=== PATIENT | male | born 1955 | race Caucasian/White ===

== ENCOUNTER 2022-03-16 19:26 | Observation (INO) ==
[2022-03-16] MEDS ORDERED: Lactated Ringers 1000 ml BAG 1,000 ML IV ONE ×2 (19:29→21:41)
[2022-03-16] MEDS ORDERED: Ondansetron 4 mg VIAL 2 MG/ML 2 ml VIAL IV ONE ×2 (19:29→22:25)
[2022-03-16] MEDS ORDERED: Pantoprazole VIAL 40 MG VIAL IV ONE (19:53)
[2022-03-16 20:03] LABS: ABS Lymphocytes 0.9 10^3/ul (1.0-4.8); ABS Neutrophils 12.8 10^3/ul (1.5-7.7); Hematocrit 54 % (42-52); Hemoglobin 17.3 g/dL (14.0-18.0); Lymphocyte % 6.4 %; Mean Corpuscular HGB Conc 32 g/dL (31-36); Mean Corpuscular Hemoglobin 29 pg (27-31); Mean Corpuscular Volume 90 fL (80-94); Mean Platelet Volume 8.5 fL (7.4-10.4); Platelet Count 356 10^3/uL (150-450); Red Blood Count 5.92 10^6 /uL (4.18-5.48); Red Cell Distribution Width 14 % (10-15); White Blood Count 14.8 10^3/uL (3.5-10.8)
[2022-03-16 20:41] LABS: ALT 14 U/L (7-52); AST 14 U/L (13-39); Albumin 5.1 g/dL (3.2-5.2); Albumin/Globulin Ratio 1.4 (1-3); Alkaline Phosphatase 70 U/L (35-149); Anion Gap 26 mmol/L (2-11); Blood Urea Nitrogen 32 mg/dL (6-24); C Reactive Protein 7.03 mg/L (<8.01); CO2 Carbon Dioxide 35 mmol/L (22-32); Calcium 10.5 mg/dL (8.6-10.3); Chloride 78 mmol/L (101-111); Globulin 3.6 g/dL (2-4); Glucose 164 mg/dL (70-100); Lipase 15 U/L (11.0-82.0); Magnesium 1.7 mg/dL (1.9-2.7); Potassium 3.7 mmol/L (3.5-5.0); Sodium 139 mmol/L (135-145); Total Protein 8.7 g/dL (6.4-8.9); eGFR CKD-EPI 23.2 (>60)
[2022-03-16 20:51] LABS: Alcohol, S < 13 mg/dL (<13)
[2022-03-16] MEDS ORDERED: Magnesium Sulfate 2 gm BAG 2 GM/50 ML BAG IVPB ONE (20:56)
[2022-03-16 21:22] LABS: Venous Bicarbonate HCO3 44.3 mmol/L (24-28)
[2022-03-16 21:56] LABS: High Sensitivity Troponin 1 Hr 71 pg/mL (<20)
[2022-03-17 00:03] LABS: Calcium 8.7 mg/dL (8.6-10.3); Magnesium 2.4 mg/dL (1.9-2.7)
[2022-03-17 00:09] LABS: eGFR CKD-EPI 31.5 (>60)
[2022-03-17] MEDS ORDERED: Potassium Chlor 20 meq TAB.ER PO ONE (00:10)
[2022-03-17] MEDS ORDERED: Potassium Chloride LIQUID 20 MEQ/15 ML LIQUID PO ONE (01:11)
[2022-03-17] MEDS: Ondansetron 4 mg VIAL 2 MG/ML 2 ml VIAL IV PRN ×2 (03:50→11:31)
[2022-03-17] MEDS: Pantoprazole VIAL 40 MG VIAL IV SCH ×3 (03:50→20:25)
[2022-03-17 06:26] LABS: ABS Eosinophils 0.1 10^3/ul (0-0.6); ABS Lymphocytes 1.1 10^3/ul (1.0-4.8); ABS Neutrophils 8.9 10^3/ul (1.5-7.7); Eosinophil % 0.8 %; Hematocrit 47 % (42-52); Hemoglobin 15.5 g/dL (14.0-18.0); Lymphocyte % 10.1 %; Mean Corpuscular HGB Conc 33 g/dL (31-36); Mean Corpuscular Hemoglobin 30 pg (27-31); Mean Corpuscular Volume 91 fL (80-94); Mean Platelet Volume 9.1 fL (7.4-10.4); Nucleated Red Blood Cells % 0.1; Platelet Count 267 10^3/uL (150-450); Red Blood Count 5.22 10^6 /uL (4.18-5.48); Red Cell Distribution Width 14 % (10-15); White Blood Count 11.2 10^3/uL (3.5-10.8)
[2022-03-17 07:23] LABS: Calcium 9.7 mg/dL (8.6-10.3); Potassium 3.9 mmol/L (3.5-5.0); eGFR CKD-EPI 31.5 (>60)
[2022-03-17] MEDS ORDERED: Pantoprazole VIAL 40 MG VIAL IV SCH (09:00)
[2022-03-17] MEDS ORDERED: Midazolam 2 mg/2 ml VIAL 1 mg/ml 2 ml VIAL (2 mg) ONE (14:18)
[2022-03-17] MEDS ORDERED: Rocuronium 50 mg VIAL 10 mg/ml 5 ml VIAL (50 mg) ONE (14:18)
[2022-03-17] MEDS ORDERED: fentaNYL 100 mcg/2 ml 50 MCG/ML VIAL ONE (14:18)
[2022-03-17] MEDS ORDERED: Propofol 10 MG/ML 20 ML BTL ONE (14:18)
[2022-03-17] MEDS ORDERED: Lidocaine 2% PF 5 ML VIAL ONE (14:19)
[2022-03-17] MEDS: Heparin 5000 UNITS/ML 1 mL VIAL SUBCUT SCH ×2 (16:32→20:24)
[2022-03-17] MEDS: Lactated Ringers 1000 ml BAG 1,000 ML IV SCH (22:39)
[2022-03-17 23:38] LABS: Calcium 9.1 mg/dL (8.6-10.3); Potassium 3.1 mmol/L (3.5-5.0); eGFR CKD-EPI 41.6 (>60)
[2022-03-18] MEDS: Heparin 5000 UNITS/ML 1 mL VIAL SUBCUT SCH ×3 (05:11→21:23)
[2022-03-18 05:25] LABS: ABS Basophils 0.1 10^3/ul (0-0.2); ABS Eosinophils 0.3 10^3/ul (0-0.6); ABS Lymphocytes 1.6 10^3/ul (1.0-4.8); ABS Monocytes 0.8 10^3/ul (0-0.8); ABS Neutrophils 5.5 10^3/ul (1.5-7.7); Eosinophil % 3.9 %; Hematocrit 42 % (42-52); Lymphocyte % 19.7 %; Mean Corpuscular HGB Conc 33 g/dL (31-36); Mean Corpuscular Hemoglobin 30 pg (27-31); Mean Corpuscular Volume 91 fL (80-94); Mean Platelet Volume 9.1 fL (7.4-10.4); Platelet Count 203 10^3/uL (150-450); Red Blood Count 4.63 10^6 /uL (4.18-5.48); Red Cell Distribution Width 14 % (10-15); White Blood Count 8.4 10^3/uL (3.5-10.8)
[2022-03-18 05:29] LABS: Urine Appearance Clear; Urine Bilirubin Negative (Negative); Urine Blood Negative (Negative); Urine Color Yellow; Urine Glucose Negative (Negative); Urine Ketones 1+ (Negative); Urine Nitrite Negative (Negative); Urine Protein Negative (Negative); Urine Urobilinogen Positive (Negative)
[2022-03-18 05:42] LABS: Potassium 3.7 mmol/L (3.5-5.0); eGFR CKD-EPI 46.9 (>60)
[2022-03-18] MEDS: Lactated Ringers 1000 ml BAG 1,000 ML IV SCH (06:41)
[2022-03-19] MEDS: Ondansetron 4 mg VIAL 2 MG/ML 2 ml VIAL IV PRN (02:40)
[2022-03-19] MEDS ORDERED: Calcium Carb (TUMS) 500 mg CHEW TAB PO ONE (02:43)
[2022-03-19] MEDS: Heparin 5000 UNITS/ML 1 mL VIAL SUBCUT SCH ×2 (05:13→13:52)
[2022-03-19 06:05] LABS: ABS Eosinophils 0.5 10^3/ul (0-0.6); ABS Lymphocytes 1.3 10^3/ul (1.0-4.8); ABS Monocytes 0.6 10^3/ul (0-0.8); ABS Neutrophils 3.9 10^3/ul (1.5-7.7); Eosinophil % 7.8 %; Hematocrit 39 % (42-52); Hemoglobin 13.1 g/dL (14.0-18.0); Lymphocyte % 20.9 %; Mean Corpuscular HGB Conc 33 g/dL (31-36); Mean Corpuscular Hemoglobin 30 pg (27-31); Mean Corpuscular Volume 91 fL (80-94); Mean Platelet Volume 8.8 fL (7.4-10.4); Platelet Count 193 10^3/uL (150-450); Red Blood Count 4.29 10^6 /uL (4.18-5.48); Red Cell Distribution Width 13 % (10-15); White Blood Count 6.4 10^3/uL (3.5-10.8)
[2022-03-19 06:33] LABS: Calcium 9.2 mg/dL (8.6-10.3); Potassium 3.3 mmol/L (3.5-5.0); eGFR CKD-EPI 65.4 (>60)
[2022-03-19] MEDS ORDERED: Potassium Chlor 20 meq TAB.ER PO ONE (09:26)
[2022-03-19] MEDS ORDERED: Calcium Carb (TUMS) 500 mg CHEW TAB PO PRN (09:32)
[2022-03-19 10:48] VITALS: BP 136/63
== END 2022-03-19 15:00 | disposition home or self-care (01) ==
LOC: ED 19:26 → MED 19:26
PROVIDERS: ADMIT Internal Medicine; ATTEND Internal Medicine
PROC: O.GIEGD (2022-03-17 15:25)

== ENCOUNTER 2022-03-21 04:06 | Inpatient (IN) ==
[2022-03-21] MEDS ORDERED: Droperidol 5 MG/2 ML 2 ML VIAL IV ONE (05:02)
[2022-03-21] MEDS ORDERED: NS 0.9% 1000 ml BAG 2,000 ML IV ONE (05:02)
[2022-03-21 05:33] LABS: ABS Eosinophils 0.5 10^3/ul (0-0.6); ABS Lymphocytes 0.9 10^3/ul (1.0-4.8); ABS Monocytes 0.7 10^3/ul (0-0.8); ABS Neutrophils 9.3 10^3/ul (1.5-7.7); Eosinophil % 4.1 %; Hematocrit 42 % (42-52); Hemoglobin 13.3 g/dL (14.0-18.0); Lymphocyte % 8.2 %; Mean Corpuscular HGB Conc 32 g/dL (31-36); Mean Corpuscular Hemoglobin 29 pg (27-31); Mean Corpuscular Volume 91 fL (80-94); Mean Platelet Volume 8.9 fL (7.4-10.4); Platelet Count 203 10^3/uL (150-450); Red Blood Count 4.57 10^6 /uL (4.18-5.48); Red Cell Distribution Width 14 % (10-15); White Blood Count 11.5 10^3/uL (3.5-10.8)
[2022-03-21 06:32] LABS: Albumin 3.9 g/dL (3.2-5.2); Albumin/Globulin Ratio 1.6 (1-3); Calcium 9.7 mg/dL (8.6-10.3); Globulin 2.5 g/dL (2-4); Potassium 3.5 mmol/L (3.5-5.0); Total Bilirubin 0.6 mg/dL (0.2-1.0); Total Protein 6.4 g/dL (6.4-8.9); eGFR CKD-EPI 73.2 (>60)
[2022-03-21 07:28] LABS: Urine Appearance Clear; Urine Bilirubin Negative (Negative); Urine Blood Negative (Negative); Urine Color Yellow; Urine Glucose Negative (Negative); Urine Ketones Negative (Negative); Urine Nitrite Negative (Negative); Urine Protein Negative (Negative); Urine Specific Gravity 1.009 (1.002-1.030); Urine Urobilinogen Negative (Negative)
[2022-03-21] MEDS ORDERED: Lidocaine 2% JELLY 6 ML Topical TOPICAL ONE ×2 (08:21→09:09)
[2022-03-21] MEDS: Ondansetron 4 mg VIAL 2 MG/ML 2 ml VIAL IV PRN ×2 (09:48→22:08)
[2022-03-21] MEDS: Lactated Ringers 1000 ml BAG 1,000 ML IV SCH ×2 (13:21→21:52)
[2022-03-21] MEDS: Pantoprazole VIAL 40 MG VIAL IV SCH ×2 (13:21→21:23)
[2022-03-21] MEDS: Heparin 5000 UNITS/ML 1 mL VIAL SUBCUT SCH ×2 (13:21→21:24)
[2022-03-22 04:51] LABS: ABS Eosinophils 0.5 10^3/ul (0-0.6); ABS Lymphocytes 1.2 10^3/ul (1.0-4.8); ABS Monocytes 0.7 10^3/ul (0-0.8); Hematocrit 35 % (42-52); Hemoglobin 11.3 g/dL (14.0-18.0); Lymphocyte % 12.7 %; Mean Corpuscular HGB Conc 32 g/dL (31-36); Mean Corpuscular Hemoglobin 29 pg (27-31); Mean Corpuscular Volume 91 fL (80-94); Mean Platelet Volume 9.3 fL (7.4-10.4); Nucleated Red Blood Cells % 0.1; Platelet Count 180 10^3/uL (150-450); Red Blood Count 3.86 10^6 /uL (4.18-5.48); Red Cell Distribution Width 14 % (10-15); White Blood Count 9.4 10^3/uL (3.5-10.8)
[2022-03-22 05:10] LABS: Potassium 3.6 mmol/L (3.5-5.0); eGFR CKD-EPI 96.5 (>60)
[2022-03-22 05:26] LABS: Calcium 8.9 mg/dL (8.6-10.3)
[2022-03-22] MEDS: Lactated Ringers 1000 ml BAG 1,000 ML IV SCH ×2 (05:36→15:36)
[2022-03-22] MEDS: Heparin 5000 UNITS/ML 1 mL VIAL SUBCUT SCH ×3 (05:37→21:41)
[2022-03-22] MEDS: Ondansetron 4 mg VIAL 2 MG/ML 2 ml VIAL IV PRN ×2 (06:36→21:52)
[2022-03-22] MEDS: Pantoprazole VIAL 40 MG VIAL IV SCH ×2 (08:33→21:38)
[2022-03-22] MEDS ORDERED: Calcium Carb (TUMS) 500 mg CHEW TAB PO PRN (15:50)
[2022-03-23] MEDS: Heparin 5000 UNITS/ML 1 mL VIAL SUBCUT SCH ×3 (05:27→22:10)
[2022-03-23 05:34] LABS: ABS Eosinophils 0.4 10^3/ul (0-0.6); ABS Lymphocytes 1.2 10^3/ul (1.0-4.8); ABS Monocytes 0.7 10^3/ul (0-0.8); ABS Neutrophils 6.5 10^3/ul (1.5-7.7); Hematocrit 33 % (42-52); Hemoglobin 10.9 g/dL (14.0-18.0); Lymphocyte % 13.7 %; Mean Corpuscular HGB Conc 33 g/dL (31-36); Mean Corpuscular Hemoglobin 30 pg (27-31); Mean Corpuscular Volume 92 fL (80-94); Mean Platelet Volume 8.9 fL (7.4-10.4); Platelet Count 185 10^3/uL (150-450); Red Blood Count 3.58 10^6 /uL (4.18-5.48); Red Cell Distribution Width 14 % (10-15); White Blood Count 8.9 10^3/uL (3.5-10.8)
[2022-03-23 05:59] LABS: Calcium 8.8 mg/dL (8.6-10.3); Potassium 3.7 mmol/L (3.5-5.0); eGFR CKD-EPI 95.2 (>60)
[2022-03-23] MEDS: Lactated Ringers 1000 ml BAG 1,000 ML IV SCH ×2 (06:07→21:01)
[2022-03-23] MEDS: Pantoprazole VIAL 40 MG VIAL IV SCH ×2 (08:30→21:04)
[2022-03-23] MEDS: Sucralfate 1 gm SUSP 1 GM/10 ML UDC PO SCH ×3 (13:00→21:04)
[2022-03-23] MEDS ORDERED: Al Hydrox/Mg Hydrox/Simet LIQ 30 ML UDC PO PRN (20:28)
[2022-03-24] MEDS: Ondansetron 4 mg VIAL 2 MG/ML 2 ml VIAL IV PRN (00:59)
[2022-03-24] MEDS: Heparin 5000 UNITS/ML 1 mL VIAL SUBCUT SCH ×3 (05:24→21:17)
[2022-03-24 06:43] LABS: Calcium 8.6 mg/dL (8.6-10.3); Magnesium 1.2 mg/dL (1.9-2.7); Potassium 3.7 mmol/L (3.5-5.0); eGFR CKD-EPI 100.3 (>60)
[2022-03-24] MEDS ORDERED: Magnesium Sulf 4 GM/100 ML IV 4,000 MG/100 ML BAG IVPB ONE (07:00)
[2022-03-24] MEDS: Sucralfate 1 gm SUSP 1 GM/10 ML UDC PO SCH ×4 (07:48→21:16)
[2022-03-24] MEDS: Pantoprazole VIAL 40 MG VIAL IV SCH ×2 (09:08→21:17)
[2022-03-24] MEDS ORDERED: Cyanocobalamin INJ 1,000 MCG/ML VIAL 1 ML VIAL IM ONE (11:07)
[2022-03-24] MEDS: Lactated Ringers 1000 ml BAG 1,000 ML IV SCH (13:21)
[2022-03-24] MEDS ORDERED: Midazolam 5 mg/5 ml VIAL 1 mg/ml 5 ml VIAL (5 mg) ONE (15:24)
[2022-03-24] MEDS ORDERED: fentaNYL 100 mcg/2 ml 50 MCG/ML VIAL ONE (15:24)
[2022-03-25] MEDS: Lactated Ringers 1000 ml BAG 1,000 ML IV SCH (04:42)
[2022-03-25] MEDS: Heparin 5000 UNITS/ML 1 mL VIAL SUBCUT SCH ×3 (05:36→21:59)
[2022-03-25] MEDS: Sucralfate 1 gm SUSP 1 GM/10 ML UDC PO SCH ×4 (07:10→23:42)
[2022-03-25] MEDS: Pantoprazole VIAL 40 MG VIAL IV SCH ×2 (08:39→22:03)
[2022-03-25] MEDS ORDERED: Metoclopramide 5 MG/ML VIAL (10 mg) IV SLOW PU ONE ×2 (13:09→16:30)
[2022-03-26 06:06] LABS: ABS Basophils 0.1 10^3/ul (0-0.2); ABS Eosinophils 0.3 10^3/ul (0-0.6); ABS Monocytes 0.9 10^3/ul (0-0.8); ABS Neutrophils 4.2 10^3/ul (1.5-7.7); Eosinophil % 4.1 %; Hematocrit 32 % (42-52); Hemoglobin 10.4 g/dL (14.0-18.0); Lymphocyte % 15.9 %; Mean Corpuscular HGB Conc 33 g/dL (31-36); Mean Corpuscular Hemoglobin 30 pg (27-31); Mean Corpuscular Volume 91 fL (80-94); Mean Platelet Volume 9.1 fL (7.4-10.4); Platelet Count 262 10^3/uL (150-450); Red Cell Distribution Width 14 % (10-15); White Blood Count 6.4 10^3/uL (3.5-10.8)
[2022-03-26] MEDS: Heparin 5000 UNITS/ML 1 mL VIAL SUBCUT SCH ×3 (06:22→21:59)
[2022-03-26] MEDS: Ondansetron 4 mg VIAL 2 MG/ML 2 ml VIAL IV PRN ×3 (06:29→22:01)
[2022-03-26 06:35] LABS: Magnesium 1.5 mg/dL (1.9-2.7); Potassium 3.6 mmol/L (3.5-5.0)
[2022-03-26 06:41] LABS: eGFR CKD-EPI 103.4 (>60)
[2022-03-26] MEDS ORDERED: Magnesium Sulfate 2 gm BAG 2 GM/50 ML BAG IVPB ONE (06:59)
[2022-03-26] MEDS: Sucralfate 1 gm SUSP 1 GM/10 ML UDC PO SCH ×3 (08:50→17:28)
[2022-03-26] MEDS: Pantoprazole VIAL 40 MG VIAL IV SCH ×2 (10:02→20:54)
[2022-03-26] MEDS ORDERED: Magnesium Sulfate IV 3 GM in NS 0.9% 100 ml BAG 100 ML IVPB ONE (10:28)
[2022-03-26] MEDS ORDERED: Magnesium Hydroxide LIQ 30 ML UDC PO PRN (10:29)
[2022-03-26] MEDS ORDERED: Polyethylene Glycol 3350 17 GM PACKET PO PRN (10:29)
[2022-03-26] MEDS ORDERED: Senna TAB 8.6 mg TAB PO PRN (10:29)
[2022-03-27] MEDS: Sucralfate 1 gm SUSP 1 GM/10 ML UDC PO SCH ×4 (01:08→17:00)
[2022-03-27] MEDS ORDERED: Metoclopramide 5 MG/ML VIAL (10 mg) IV PRN (01:26)
[2022-03-27] MEDS: Heparin 5000 UNITS/ML 1 mL VIAL SUBCUT SCH ×3 (05:56→22:14)
[2022-03-27 06:19] LABS: ABS Eosinophils 0.2 10^3/ul (0-0.6); ABS Lymphocytes 0.9 10^3/ul (1.0-4.8); ABS Monocytes 0.8 10^3/ul (0-0.8); ABS Neutrophils 8.3 10^3/ul (1.5-7.7); Hematocrit 34 % (42-52); Hemoglobin 11.2 g/dL (14.0-18.0); Lymphocyte % 8.9 %; Mean Corpuscular HGB Conc 33 g/dL (31-36); Mean Corpuscular Hemoglobin 30 pg (27-31); Mean Corpuscular Volume 91 fL (80-94); Platelet Count 308 10^3/uL (150-450); Red Blood Count 3.73 10^6 /uL (4.18-5.48); Red Cell Distribution Width 14 % (10-15); White Blood Count 10.2 10^3/uL (3.5-10.8)
[2022-03-27 06:33] LABS: Magnesium 1.8 mg/dL (1.9-2.7); Potassium 3.5 mmol/L (3.5-5.0); eGFR CKD-EPI 96.9 (>60)
[2022-03-27] MEDS: Ondansetron 4 mg VIAL 2 MG/ML 2 ml VIAL IV PRN (06:41)
[2022-03-27 07:08] LABS: Hematocrit 35 % (42-52); Hemoglobin 11.5 g/dL (14.0-18.0)
[2022-03-27] MEDS ORDERED: Magnesium Sulfate 2 gm BAG 2 GM/50 ML BAG IVPB ONE (08:19)
[2022-03-27] MEDS: Pantoprazole VIAL 40 MG VIAL IV SCH ×2 (08:31→20:49)
[2022-03-27 19:58] LABS: Helicobacter pylori Result Not Detected; Specimen Source STOOL
[2022-03-28] MEDS: Sucralfate 1 gm SUSP 1 GM/10 ML UDC PO SCH ×5 (00:41→23:31)
[2022-03-28] MEDS: Heparin 5000 UNITS/ML 1 mL VIAL SUBCUT SCH ×3 (05:50→21:25)
[2022-03-28 07:03] LABS: ABS Eosinophils 0.3 10^3/ul (0-0.6); ABS Lymphocytes 1.2 10^3/ul (1.0-4.8); ABS Monocytes 0.9 10^3/ul (0-0.8); ABS Neutrophils 4.9 10^3/ul (1.5-7.7); Eosinophil % 4.3 %; Hematocrit 29 % (42-52); Hemoglobin 9.7 g/dL (14.0-18.0); Lymphocyte % 16.9 %; Mean Corpuscular HGB Conc 33 g/dL (31-36); Mean Corpuscular Hemoglobin 30 pg (27-31); Mean Corpuscular Volume 90 fL (80-94); Mean Platelet Volume 8.3 fL (7.4-10.4); Platelet Count 306 10^3/uL (150-450); Red Blood Count 3.23 10^6 /uL (4.18-5.48); Red Cell Distribution Width 14 % (10-15); White Blood Count 7.3 10^3/uL (3.5-10.8)
[2022-03-28 07:22] LABS: Anion Gap 9 mmol/L (2-11); Blood Urea Nitrogen 8 mg/dL (6-24); CO2 Carbon Dioxide 27 mmol/L (22-32); Calcium 8.1 mg/dL (8.6-10.3); Chloride 103 mmol/L (101-111); Glucose 116 mg/dL (70-100); Magnesium 1.7 mg/dL (1.9-2.7); Potassium 3.8 mmol/L (3.5-5.0); Sodium 139 mmol/L (135-145); eGFR CKD-EPI 99.9 (>60)
[2022-03-28] MEDS ORDERED: Magnesium Sulfate 2 gm BAG 2 GM/50 ML BAG IVPB ONE (07:25)
[2022-03-28] MEDS: Pantoprazole VIAL 40 MG VIAL IV SCH ×2 (08:08→21:24)
[2022-03-28] MEDS ORDERED: Gadoteridol (CONTRAST) 279.3 MG/ML 10 ML IV ONE (11:54)
[2022-03-28] MEDS: Lactated Ringers 1000 ml BAG 1,000 ML IV SCH ×2 (14:00→23:33)
[2022-03-28 14:21] LABS: Total Iron Binding Capacity 225 mcg/dL (250-450); Transferrin 161 mg/dL (203-362)
[2022-03-28 14:27] LABS: % Iron Saturation 9 % (15-55); Iron < 20 ug/dL (50-212); Unsaturated Iron Binding 205 ug/dL
[2022-03-28 14:36] LABS: Corrected Retic Count 1.2 % (0.5-1.5); Hematocrit for Retic CNT 30 % (42-52); Immature Retic Fraction 0.43; RBC Retic Count 3.31 10^6/uL (4.18-5.48)
[2022-03-28 19:52] LABS: Rapid COVID-19 Molecular Undetected (Undetected)
[2022-03-29] MEDS: Sucralfate 1 gm SUSP 1 GM/10 ML UDC PO SCH ×2 (05:35→12:39)
[2022-03-29] MEDS: Heparin 5000 UNITS/ML 1 mL VIAL SUBCUT SCH ×2 (05:35→14:11)
[2022-03-29 05:44] LABS: ABS Eosinophils 0.3 10^3/ul (0-0.6); ABS Lymphocytes 1.6 10^3/ul (1.0-4.8); ABS Monocytes 0.7 10^3/ul (0-0.8); ABS Neutrophils 5.6 10^3/ul (1.5-7.7); Hematocrit 31 % (42-52); Mean Corpuscular HGB Conc 33 g/dL (31-36); Mean Corpuscular Hemoglobin 30 pg (27-31); Mean Corpuscular Volume 90 fL (80-94); Platelet Count 353 10^3/uL (150-450); Red Blood Count 3.39 10^6 /uL (4.18-5.48); Red Cell Distribution Width 14 % (10-15); White Blood Count 8.3 10^3/uL (3.5-10.8)
[2022-03-29 06:15] LABS: Calcium 8.3 mg/dL (8.6-10.3); Magnesium 1.8 mg/dL (1.9-2.7); Potassium 4.2 mmol/L (3.5-5.0); eGFR CKD-EPI 98.7 (>60)
[2022-03-29 09:32] LABS: Phosphorus 1.9 mg/dL (2.5-5.0)
[2022-03-29] MEDS: Pantoprazole VIAL 40 MG VIAL IV SCH (09:59)
[2022-03-29 11:15] VITALS: BP 124/73
[2022-03-29] MEDS ORDERED: Lactated Ringers 1000 ml BAG 1,000 ML IV SCH ×2 (11:16→12:00)
[2022-03-29] MEDS: Ondansetron 4 mg VIAL 2 MG/ML 2 ml VIAL IV PRN (14:36)
[2022-03-29] MEDS ORDERED: TPN 24 HR with D10W 1000 ml BAG 1,000 ML, Amino Acid Infusion 10% 850 ML, Sterile Water... IV SCH (17:00)
== END 2022-03-29 14:35 | disposition short-term general hospital (02) | DRG 326 ==
LOC: ED 04:06 → EDHOLD 04:06 → SUATTDRO 09:56 → SSU 12:56 → SUATTDRO 03-23 09:00
PROVIDERS: ADMIT Internal Medicine; ATTEND Internal Medicine

== ENCOUNTER 2022-11-05 09:32 | Inpatient (IN) ==
[2022-11-05 11:58] LABS: Hemoglobin 9.4 g/dL (13.2-16.3); Mean Corpuscular Hemoglobin 27.3 pg (27-33); Mean Corpuscular Hgb Conc 31.4 g/dL (31-36); Mean Corpuscular Volume 87.1 fL (80-97); Mean Platelet Volume 7.3 fL (7.5-11.2); Platelet Count 276 10^3/uL (150-450); Red Blood Count 3.45 10^6/uL (4.06-5.63); White Blood Count 10.8 10^3/uL (3.6-10.2)
[2022-11-05 12:49] LABS: Anisocytosis 3+
[2022-11-05 12:50] LABS: Schistocytes 1+; Tear Drop Cells 1+
[2022-11-05 12:51] LABS: ABS Basophils 0.1 10^3/uL (0.0-0.1); ABS Eosinophils 0.2 10^3/uL (0.0-0.5); ABS Lymphocytes 1.2 10^3/uL (1.0-4.8); ABS Monocytes 0.9 10^3/uL (0.0-1.1); ABS Neutrophils 8.4 10^3/uL (1.5-7.6); Eosinophil % 2.3 %; Lymphocyte % 11.4 %
[2022-11-05 13:11] LABS: Albumin 2.7 g/dL (3.2-5.2); Creatinine, Serum 0.56 mg/dL (0.67-1.17); Globulin 2.6 g/dL (2-4); Potassium 3.2 mmol/L (3.5-5.0); Total Bilirubin 0.4 mg/dL (0.2-1.0); Total Protein 5.3 g/dL (6.4-8.9); eGFR CKD-EPI 108.7 (>60)
[2022-11-05] MEDS ORDERED: oxyCODONE/Acetamin 5/325 mg TAB PO ONE (14:00)
[2022-11-05 14:01] LABS: Calcium 6.3 mg/dL (8.6-10.3); Magnesium 0.6 mg/dL (1.9-2.7)
[2022-11-05] MEDS ORDERED: Magnesium Sulf 4 GM/100 ML IV 4,000 MG/100 ML BAG IVPB ONE (14:05)
[2022-11-05] MEDS ORDERED: Calcium Gluconate 2 GM in NS 0.9% 100 ml BAG 100 ML IVPB ONE (14:06)
[2022-11-05] MEDS ORDERED: Potassium EFFERVES 25 meq TAB PO ONE (14:17)
[2022-11-05 19:21] LABS: Calcium 6.7 mg/dL (8.6-10.3); Creatinine, Serum 0.54 mg/dL (0.67-1.17); Potassium 3.6 mmol/L (3.5-5.0); eGFR CKD-EPI 109.9 (>60)
[2022-11-05 19:37] LABS: Magnesium 7.8 mg/dL (1.9-2.7)
[2022-11-06 00:53] LABS: Urine Appearance Clear; Urine Bilirubin Negative (Negative); Urine Blood Negative (Negative); Urine Color Yellow; Urine Glucose Negative (Negative); Urine Ketones Negative (Negative); Urine Nitrite Negative (Negative); Urine Protein Negative (Negative); Urine Specific Gravity 1.019 (1.002-1.030); Urine Urobilinogen Negative (Negative)
[2022-11-06 05:01] LABS: Hematocrit 23.3 % (38-53); Hemoglobin 7.7 g/dL (13.2-16.3); Mean Corpuscular Hemoglobin 28.3 pg (27-33); Mean Corpuscular Hgb Conc 32.9 g/dL (31-36); Mean Platelet Volume 7.3 fL (7.5-11.2); Platelet Count 225 10^3/uL (150-450); Red Blood Count 2.72 10^6/uL (4.06-5.63); Red Cell Distribution Width 25.5 % (12-17); White Blood Count 8.3 10^3/uL (3.6-10.2)
[2022-11-06 05:42] LABS: Calcium 6.5 mg/dL (8.6-10.3); Creatinine, Serum 0.51 mg/dL (0.67-1.17); Magnesium 1.2 mg/dL (1.9-2.7); Potassium 3.8 mmol/L (3.5-5.0); eGFR CKD-EPI 111.8 (>60)
[2022-11-06] MEDS ORDERED: Magnesium Sulf 4 GM/100 ML IV 4,000 MG/100 ML BAG IVPB ONE (07:34)
[2022-11-06] MEDS: Potassium Chlor 20 meq TAB.ER PO SCH (07:45)
[2022-11-06] MEDS ORDERED: Calcium Gluconate 4 GM in NS 0.9% 250 ml 250 ML IVPB ONE (08:53)
[2022-11-06] MEDS ORDERED: NS 0.9% IV ONE (10:00)
[2022-11-06] MEDS ORDERED: CALCIUM GLUCONATE IV ONE (10:00)
[2022-11-07 06:48] LABS: Hematocrit 24.1 % (38-53); Hemoglobin 7.7 g/dL (13.2-16.3); Mean Corpuscular Hemoglobin 27.6 pg (27-33); Mean Corpuscular Volume 86.2 fL (80-97); Mean Platelet Volume 7.7 fL (7.5-11.2); Platelet Count 253 10^3/uL (150-450); Red Cell Distribution Width 25.2 % (12-17); White Blood Count 6.6 10^3/uL (3.6-10.2)
[2022-11-07 06:58] LABS: Creatinine, Serum 0.51 mg/dL (0.67-1.17); Magnesium 1.6 mg/dL (1.9-2.7); Potassium 4.2 mmol/L (3.5-5.0); eGFR CKD-EPI 111.8 (>60)
[2022-11-07 08:22] LABS: ABS Eosinophils 0.3 10^3/uL (0.0-0.5); ABS Lymphocytes 0.7 10^3/uL (1.0-4.8); ABS Monocytes 0.5 10^3/uL (0.0-1.1); ABS Nucleated RBC 0.01 10^3/ul; Eosinophil % 4.8 %; Lymphocyte % 10.6 %; Nucleated Red Blood Cells % 0.1 /100 WBC (0.0-0.4)
[2022-11-07] MEDS: Potassium Chlor 20 meq TAB.ER PO SCH (11:26)
[2022-11-07] MEDS ORDERED: Iohexol 350 (CONTRAST) 100 ML PAK IV ONE (13:21)
[2022-11-07] MEDS ORDERED: Lidocaine 1% VIAL 10 MG/ML VIAL 30 ML ONE (13:21)
[2022-11-07] MEDS ORDERED: Heparin 2 UNITS/ML IVPREMIX 3,000 UNIT/1,500 ML BAG IV ONE (13:21)
[2022-11-07] MEDS ORDERED: Midazolam 5 mg/5 ml VIAL 1 mg/ml 5 ml VIAL (5 mg) ONE (14:39)
[2022-11-07] MEDS ORDERED: fentaNYL 100 mcg/2 ml 50 MCG/ML VIAL ONE (14:39)
[2022-11-07] MEDS ORDERED: Heparin 1,000 UNIT/ML 10 ml (10,000 UNITS) CATHLAB/DIALYSIS ONE (14:39)
[2022-11-07] MEDS ORDERED: Magnesium Sulfate IV 1GM/100ML 1 GM/100 ML BAG IV ONE (16:14)
[2022-11-07] MEDS ORDERED: Iohexol 350 (CONTRAST) 500 ML MDV IV ONE (19:12)
[2022-11-07 20:19] LABS: Calcium 7.4 mg/dL (8.6-10.3); Creatinine, Serum 0.52 mg/dL (0.67-1.17); Potassium 4.4 mmol/L (3.5-5.0); eGFR CKD-EPI 111.2 (>60)
[2022-11-08 00:42] LABS: ABS Eosinophils 0.2 10^3/uL (0.0-0.5); ABS Lymphocytes 0.7 10^3/uL (1.0-4.8); ABS Monocytes 0.5 10^3/uL (0.0-1.1); ABS Neutrophils 5.5 10^3/uL (1.5-7.6); ABS Nucleated RBC 0.01 10^3/ul; Eosinophil % 2.7 %; Hemoglobin 6.6 g/dL (13.2-16.3); Lymphocyte % 9.6 %; Mean Corpuscular Hemoglobin 28.4 pg (27-33); Mean Corpuscular Hgb Conc 32.8 g/dL (31-36); Mean Corpuscular Volume 86.5 fL (80-97); Mean Platelet Volume 7.3 fL (7.5-11.2); Nucleated Red Blood Cells % 0.1 /100 WBC (0.0-0.4); Platelet Count 243 10^3/uL (150-450); Red Blood Count 2.31 10^6/uL (4.06-5.63); Red Cell Distribution Width 24.1 % (12-17); White Blood Count 6.9 10^3/uL (3.6-10.2)
[2022-11-08 04:23] LABS: Hematocrit 22.1 % (38-53); Hemoglobin 7.2 g/dL (13.2-16.3); Mean Corpuscular Hemoglobin 28.2 pg (27-33); Mean Corpuscular Hgb Conc 32.6 g/dL (31-36); Mean Corpuscular Volume 86.7 fL (80-97); Mean Platelet Volume 7.1 fL (7.5-11.2); Platelet Count 263 10^3/uL (150-450); Red Blood Count 2.55 10^6/uL (4.06-5.63); Red Cell Distribution Width 24.7 % (12-17); White Blood Count 7.3 10^3/uL (3.6-10.2)
[2022-11-08 05:01] LABS: Anion Gap 4 mmol/L (2-16); Blood Urea Nitrogen 7 mg/dL (6-24); CO2 Carbon Dioxide 25 mmol/L (22-32); Calcium 7.3 mg/dL (8.6-10.3); Chloride 102 mmol/L (101-111); Creatinine, Serum 0.57 mg/dL (0.67-1.17); Glucose 109 mg/dL (70-100); Magnesium 1.7 mg/dL (1.9-2.7); Potassium 4.3 mmol/L (3.5-5.0); Sodium 131 mmol/L (135-145); eGFR CKD-EPI 108.1 (>60)
[2022-11-08 05:11] LABS: Anisocytosis 1+
[2022-11-08 05:12] LABS: Microcytosis 1+
[2022-11-08 05:13] LABS: ABS Basophils 0.1 10^3/uL (0.0-0.1); ABS Eosinophils 0.3 10^3/uL (0.0-0.5); ABS Lymphocytes 0.7 10^3/uL (1.0-4.8); ABS Monocytes 0.5 10^3/uL (0.0-1.1); ABS Neutrophils 5.7 10^3/uL (1.5-7.6); Lymphocyte % 10.2 %; Nucleated Red Blood Cells % 0.1 /100 WBC (0.0-0.4)
[2022-11-08 08:57] LABS: Corrected Retic Count 0.7 % (0.5-1.5); Hematocrit for Retic CNT 22.4 % (38-53); Immature Retic Fraction 0.47; RBC Retic Count 2.57 10^6/ul (4.06-5.63)
[2022-11-08] MEDS: Potassium Chlor 20 meq TAB.ER PO SCH (09:02)
[2022-11-08 09:07] LABS: % Iron Saturation 12 % (15-55); .Transferrin 117 mg/dL (203-362); Iron < 20 ug/dL (50-212); Total Iron Binding Capacity 164 mcg/dL (250-450); Unsaturated Iron Binding 144 ug/dL
[2022-11-08 09:33] LABS: Folate 19.15 ng/mL (5.90-24.80)
[2022-11-08 09:34] LABS: Vitamin B12 930 pg/mL (180-914)
[2022-11-08 10:57] LABS: Hematocrit 24.6 % (38-53); Hemoglobin 8.2 g/dL (13.2-16.3)
[2022-11-09 06:15] LABS: ABS Eosinophils 0.4 10^3/uL (0.0-0.5); ABS Lymphocytes 0.6 10^3/uL (1.0-4.8); ABS Monocytes 0.4 10^3/uL (0.0-1.1); ABS Neutrophils 3.8 10^3/uL (1.5-7.6); Eosinophil % 6.8 %; Hematocrit 22.9 % (38-53); Hemoglobin 7.6 g/dL (13.2-16.3); Lymphocyte % 11.9 %; Mean Corpuscular Hemoglobin 28.5 pg (27-33); Mean Corpuscular Hgb Conc 33.4 g/dL (31-36); Mean Corpuscular Volume 85.5 fL (80-97); Mean Platelet Volume 7.4 fL (7.5-11.2); Platelet Count 236 10^3/uL (150-450); Red Blood Count 2.68 10^6/uL (4.06-5.63); Red Cell Distribution Width 22.5 % (12-17); White Blood Count 5.3 10^3/uL (3.6-10.2)
[2022-11-09 06:24] LABS: Calcium 7.2 mg/dL (8.6-10.3); Creatinine, Serum 0.5 mg/dL (0.67-1.17); Potassium 4.1 mmol/L (3.5-5.0); eGFR CKD-EPI 112.5 (>60)
[2022-11-09] MEDS: Potassium Chlor 20 meq TAB.ER PO SCH (08:07)
[2022-11-09 15:35] LABS: C Reactive Protein 72.02 mg/L (<8.01)
[2022-11-09 16:41] LABS: Erythrocyte Sed Rate 28 mm/Hr (0-19)
[2022-11-10 06:15] LABS: ABS Eosinophils 0.4 10^3/uL (0.0-0.5); ABS Lymphocytes 0.7 10^3/uL (1.0-4.8); ABS Monocytes 0.6 10^3/uL (0.0-1.1); Eosinophil % 5.5 %; Hematocrit 23.6 % (38-53); Hemoglobin 7.9 g/dL (13.2-16.3); Lymphocyte % 10.4 %; Mean Corpuscular Hgb Conc 33.5 g/dL (31-36); Mean Corpuscular Volume 86.5 fL (80-97); Mean Platelet Volume 7.3 fL (7.5-11.2); Nucleated Red Blood Cells % 0.1 /100 WBC (0.0-0.4); Platelet Count 261 10^3/uL (150-450); Red Blood Count 2.73 10^6/uL (4.06-5.63); Red Cell Distribution Width 21.5 % (12-17); White Blood Count 6.6 10^3/uL (3.6-10.2)
[2022-11-10 06:49] LABS: Calcium 7.3 mg/dL (8.6-10.3); Creatinine, Serum 0.58 mg/dL (0.67-1.17); Magnesium 1.6 mg/dL (1.9-2.7); Potassium 4.2 mmol/L (3.5-5.0); eGFR CKD-EPI 107.6 (>60)
[2022-11-10] MEDS ORDERED: Magnesium Sulf 4 GM/100 ML IV 4,000 MG/100 ML BAG IVPB ONE (07:21)
[2022-11-10] MEDS: Potassium Chlor 20 meq TAB.ER PO SCH (08:35)
[2022-11-10] MEDS ORDERED: Iron Sucrose 200 MG in NS 0.9% 100 ml BAG 100 ML IVPB SCH (14:00)
[2022-11-11 06:16] LABS: ABS Eosinophils 0.3 10^3/uL (0.0-0.5); ABS Lymphocytes 0.8 10^3/uL (1.0-4.8); ABS Monocytes 0.5 10^3/uL (0.0-1.1); ABS Neutrophils 3.4 10^3/uL (1.5-7.6); Eosinophil % 6.7 %; Hematocrit 21.1 % (38-53); Hemoglobin 7.1 g/dL (13.2-16.3); Lymphocyte % 14.9 %; Mean Corpuscular Hemoglobin 28.7 pg (27-33); Mean Corpuscular Hgb Conc 33.6 g/dL (31-36); Mean Corpuscular Volume 85.2 fL (80-97); Mean Platelet Volume 7.4 fL (7.5-11.2); Platelet Count 256 10^3/uL (150-450); Red Blood Count 2.48 10^6/uL (4.06-5.63); White Blood Count 5.1 10^3/uL (3.6-10.2)
[2022-11-11 06:50] LABS: Calcium 7.2 mg/dL (8.6-10.3); Creatinine, Serum 0.44 mg/dL (0.67-1.17); Magnesium 1.8 mg/dL (1.9-2.7); eGFR CKD-EPI 116.9 (>60)
[2022-11-11] MEDS: Potassium Chlor 20 meq TAB.ER PO SCH (08:36)
[2022-11-11 14:45] VITALS: BP 113/52
== END 2022-11-11 18:28 | disposition home or self-care (01) | DRG 270 ==
LOC: ED 09:32 → SUATTDRO 21:35 → OBSVTOIN 21:35 → EDHOLD 21:35 → INTOOBSV 21:35 → MEDTELE 23:19
PROVIDERS: ADMIT Hospitalist; ATTEND Hospitalist